=== PATIENT | male | born 1985 | race Caucasian/White ===

== ENCOUNTER 2021-03-15 22:14 | Emergency (ER) | payer MEDICAID, SELFPAY ==
[~2021-03-15] VITALS: Ht 185.4 cm; Wt 90.3 kg
[2021-03-15 23:51] VITALS: BP_SYST 148
--- NOTE | 2021-03-15 23:51 | NUR ---
Patient to ER TENT for evaluation.
--- NOTE | 2021-03-15 23:54 | NUR ---
PATIENT COMPLAINING OF FEVER AND COUGH X 2 DAYS. SPEAKING FULL SENTENCES. NO ACUTE DISTRESS NOTED.
--- NOTE | 2021-03-15 23:55 | NUR ---
ER at bedside examining patient.
[2021-03-15 23:59] VITALS: BP_SYST 148
--- NOTE | 2021-03-15 23:59 | NUR ---
Patient given written and verbal discharge instructions and verbalizes understanding. ER MD discussed with patient the results and treatment provided. Patient in stable condition. ID arm band removed. NO RX GIVEN. Patient educated on pain management and to follow up with PMD. Pain Scale 0/10 Opportunity for questions provided and answered.
== END 2021-03-15 23:59 | disposition home or self-care (01) ==
LOC: SED 22:14
DX: J06.9 Acute upper respiratory infection, unspecified (principal)
CPT/HCPCS: 71045; 99283